=== PATIENT | female | born 1985 | race Hispanic/Latino ===

== ENCOUNTER → 2018-03-11 12:33 | Outpatient (CLI) | payer OTHER, SELFPAY | PROVIDERS: Visit Provider Physician Assistant | DX: R31.9 Hematuria, unspecified (principal) | CPT/HCPCS: 87086 ==

== ENCOUNTER → 2018-11-13 09:16 | Outpatient (CLI) | payer OTHER, SELFPAY ==
--- NOTE | 2018-11-13 09:18 | DI.RAD.S_ITS ---
PROCEDURE: XR CHEST 2V INDICATIONS: cough TECHNIQUE: 2 views of the chest were acquired. COMPARISON: None. FINDINGS: Surgical changes and devices: None. Lungs and pleura: Lungs are abnormal at the right upper lobe where focal consolidation above the minor fissure is present with some degree of volume loss elevating the minor fissure cephalad. The appearance in this clinical circumstance in a young patient is most likely pneumonia but the appearance does raise a degree of concern for neoplasm could be present.. No pleural effusions or pneumothorax. Mediastinum: Mediastinal contours are normal. Heart size is normal. Bones and chest wall: No suspicious bony abnormalities. Soft tissues appear unremarkable. IMPRESSION: Pneumonia is the likely cause for the focal consolidation and volume loss involving the right upper lobe just above the minor fissure on the right. Followup plane films after treatment and resolution of symptoms is recommended to confirm absence of underlying mass. Dictated by: Gonzalo Casarez M.D. on 11/13/2018 at 9:33 Approved by: Gonzalo Casarez M.D. on 11/13/2018 at 9:34
== END ==
PROVIDERS: Visit Provider Physician Assistant
DX: R05 Cough (principal)
CPT/HCPCS: 71046

== ENCOUNTER → 2019-03-05 16:05 | Outpatient (CLI) | payer OTHER, SELFPAY ==
--- NOTE | 2019-03-05 16:11 | DI.RAD.S_ITS ---
PROCEDURE: XR FOOT RT MIN 3V INDICATIONS: pain area 3rd MT/cuneiform joint after inversion injury TECHNIQUE: 3 views of the foot were acquired. COMPARISON: None. FINDINGS: Bones: No fractures or dislocations. No suspicious bony lesions. Soft tissues: No tibiotalar joint effusion. Achilles tendon appears normal. IMPRESSION: No trauma found. Depending on the clinical status followup by advance imaging such as CT or MR scanning may be warranted if unusual symptoms persist that would indicate presence of occult fracture at the base of the metatarsal bones. Dictated by: Gonzalo Casarez M.D. on 03/05/2019 at 17:36 Approved by: Gonzalo Casarez M.D. on 03/05/2019 at 17:37
== END ==
PROVIDERS: Family Provider Family Medicine; PCP Family Medicine; Visit Provider Family Medicine
DX: S99.921A Unspecified injury of right foot, initial encounter (principal); M79.671 Pain in right foot
CPT/HCPCS: 73630

== ENCOUNTER → 2019-05-20 12:54 | Outpatient (CLI) | payer OTHER, SELFPAY ==
[2019-05-20 14:48] LABS: TSH w/ Reflex to FT4 2.07 uIU/mL (0.47-4.68)
== END ==
PROVIDERS: PCP Family Medicine; Visit Provider Family Medicine
DX: R00.2 Palpitations (principal)
CPT/HCPCS: 36415; 84443

== ENCOUNTER → 2019-05-29 09:17 | Outpatient (CLI) | payer OTHER, SELFPAY ==
--- NOTE | 2019-06-28 16:06 | P.HOLT.S_ITS ---
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 Referral & Results Date Patient Seen: 05/29/19 Requesting provider: Sabina Garnett Indication: Palpitations Duration of monitoring (days): 14 Diary information: There were 150 patient triggered events and no patient diary entries Patient triggered events were associated with sinus rhythm, PVCs, and PACs Data: Minimum heart rate identified was 53 beats per minute at 02:50 on 06/05/2019 Maximum heart rate was 163 beats per minute at 14:02 on 06/06/2018 Less than 1% of identified beats rather ventricular supraventricular ectopic in origin Impression: Patient with a tremendous number of triggered events, no clear pattern to associate these with either PVCs or PACs was identified however these triggered events were associated with these dysrhythmias as well as sinus rhythm No other significant dysrhythmias identified
== END ==
PROVIDERS: PCP Family Medicine; Visit Provider Family Medicine
DX: R00.2 Palpitations (principal)
CPT/HCPCS: 0296T; 0298T

== ENCOUNTER → 2021-07-09 10:00 | Outpatient (CLI) | payer OTHER, SELFPAY ==
[2021-07-09 10:53] LABS: Hemoglobin A1C% w Est Avg Glu 5.2 % (4.0-6.0)
== END ==
PROVIDERS: PCP Family Medicine; Referring Provider Family Medicine; Visit Provider Family Medicine
DX: E16.2 Hypoglycemia, unspecified (principal); Z83.3 Family history of diabetes mellitus
CPT/HCPCS: 36415; 83036

== ENCOUNTER → 2023-11-15 07:47 | Outpatient (CLI) | payer OTHER, SELFPAY ==
[2023-11-15 09:17] LABS: Cholesterol 166 mg/dL (140-199); HDL Cholesterol 46 mg/dL (40-60); LDL Cholesterol Calculated 87 mg/dL (<100); Triglycerides 164 mg/dL (35-150)
[2023-11-15 09:22] LABS: Hemoglobin A1C% w Est Avg Glu 5.1 % (4.0-6.0)
== END ==
PROVIDERS: PCP Family Medicine; Referring Provider Family Medicine; Visit Provider Family Medicine
DX: E66.9 Obesity, unspecified (principal)
CPT/HCPCS: 36415; 80061; 83036

== ENCOUNTER → 2025-02-26 10:35 | Outpatient (CLI) | payer OTHER, SELFPAY ==
--- NOTE | 2025-02-26 10:37 | DI.US.S_ITS ---
PROCEDURE: US PELVIC COMPLETE INDICATIONS: LEFT ADNEXAL PAIN TECHNIQUE: Real-time scanning was performed of the pelvic organs, with image documentation. Additional endovaginal scanning was necessary due to incomplete visualization of the adnexal and endometrial structures by transabdominal scanning. COMPARISON: None. FINDINGS: Uterus: Uterus is anteverted and normal in size at 7.1 x 5.2 x 4.5 cm. The myometrium is heterogeneous. 1.6 x 1 x 0.6 cm hypoechoic area in posterior myometrium is seen and show no internal vascularity which may represent a small fibroid. The endometrium measures 5.4 mm combined thickness. No endometrial mass or fluid. Ovaries: The right ovary measures 3.1 x 2.3 x 2.3 cm, with a calculated ovarian volume of 8.6 cc. The left ovary measures 3.6 x 2.8 x 2.1 cm, with a calculated ovarian volume of 11.4 cc. The ovaries have a normal sonographic appearance. LEs than 12 follicles can be seen in each ovary. No adnexal masses are seen. Normal blood flow is seen in bilateral ovaries on color Doppler images. Other: No pathologic free abdominal or pelvic fluid. 82 cc of postvoid residual is seen in urinary bladder. IMPRESSION: 1. No evidence of ovarian torsion. No solid appearing ovarian lesion. 2. Heterogeneous myometrial echotexture with suggestion of a small intrauterine fibroid as above. No endometrial mass or fluid. 3. Incidentally noted of moderate sized postvoid residual in the urinary bladder. We strive to produce accurate, complete, and clear reports of imaging services. To assist us in improving patient care, this report was composed using standard report templates and voice recognition software. Therefore, it may contain abnormal punctuation, insertions and/or omissions. Occasional wrong-word or sound-alike substitutions may occur. Though we review the report and make efforts to correct it, we do recommend that the report be read carefully in proper context to recognize any text inaccuracies. Dictated by: Ed Bolanos M.D. on 02/26/2025 at 11:30 Approved by: Ed Bolanos M.D. on 02/26/2025 at 11:32
== END ==
LOC: US 10:36
PROVIDERS: PCP Family Medicine; Referring Provider Family Medicine; Visit Provider Family Medicine
DX: R10.2 Pelvic and perineal pain (principal)
CPT/HCPCS: 76830; 76856